=== PATIENT | female | born 1995 | race Caucasian/White ===

== ENCOUNTER 2018-03-24 14:49 | Inpatient (IN) | payer MEDICAID ==
[2018-03-24] MEDS ORDERED: ACETAMINOPHEN TAB 325 MG TAB PO PRN (15:37)
[2018-03-24] MEDS ORDERED: MAG HYDROX/AL HYDROX/SIMETH 30 ML CUP PO PRN (15:37)
[2018-03-24] MEDS ORDERED: MAGNESIUM HYDROXIDE 2,400 MG/10 ML CUP PO PRN (15:37)
[2018-03-24 19:52] VITALS: BMI 24.0
[2018-03-24] MEDS: QUEtiapine 25 MG TAB PO SCH (21:41)
[2018-03-25 07:10] VITALS: RESP 16
--- NOTE | 2018-03-25 10:16 | P.HPMEDMHU ---
History of Present Illness H&P Date: 03/25/18 Chief Complaint: Mental health unit H&P The patient is a 22-year-old female that is admitted to the mental health unit after being transferred here from [facility]. Apparently on Thursday night she presented there with suicidal ideation and drug overdose after apparently taking 15-20 tabs of Restoril 15 mg after which she notified friends that subsequently brought her to the ER there where she apparently received charcoal, she was subsequently discharged yesterday and transferred here for inpatient psychiatric treatment. The patient reports a history of bipolar disorder and a family history of schizoaffective disorder, the patient reports increasing feelings of hopelessness and feeling overwhelmed. Her latest trigger and psychosocial issues is a recent breakup with her significant other due to issues of infidelity. She currently has no place to go, this is her first suicide attempt. Although feeling depressed, she is remorseful about was never to attempt suicide again. Patient otherwise denies any medical issues, she denies any chest pain or shortness of breath. Review of Systems Pertinent positives and negatives as discussed in HPI, complete review of systems was performed and all other systems are negative Past Medical History Additional Past Medical History / Comment(s): in past, pt states that she had anemia, and potentially hypoglycemia. renaulds disease History of Any Multi-Drug Resistant Organisms: None Reported Past Surgical History: No Surgical Hx Reported Additional Psychological History / Comment(s): pt had 1 psych admit in the past Smoking Status: Never smoker Past Alcohol Use History: None Reported Past Drug Use History: Marijuana Additional Drug Use History / Comment(s): pt states 1 joint a week, pt carries a medicaL mj card Medications and Allergies Home Medications Medication Instructions Recorded Confirmed Type QUEtiapine [SEROquel] 25 mg PO HS 03/24/18 03/24/18 History Allergies Allergy/AdvReac Type Severity Reaction Status Date / Time No Known Allergies Allergy Verified 03/24/18 15:36 Physical Exam Vitals: Vital Signs Temp Pulse Resp BP 03/25/18 06:38 97.8 F 85 16 99/57 03/24/18 19:45 98.9 F 108 H 18 118/70 Intake and Output 03/24/18 03/25/18 03/25/18 22:59 06:59 14:59 Other: Weight 63.509 kg Constitutional: No acute distress, conversant, pleasant Eyes: Anicteric sclerae, moist conjunctiva, no lid-lag, PERRLA ENMT: NC/AT,Oropharynx clear, no erythema, exudates Neck:Supple, FROM, no masses, or JVD, No carotid bruits; No thyromegaly Lungs: Clear to auscultation, Clear to percussion, Normal respiratory effort, no accessory muscle use Cardiovascular: Heart regular in rate and rhythm, No murmurs, gallops, or rubs no peripheral edema Abdominal: Soft Nontender, nom distended, no guarding, no rebound or rigidity, Normoactive bowel sounds No hepatomegaly, No splenomegaly, No palpable mass No abdominal wall hernia noted Skin: Normal temperature, tone, texture, turgor, No induration No subcutaneous nodules, No rash, lesions, No ulcers Extremities:No digital cyanosis No clubbing, Pedal pulses intact and symmetrical Radial pulses intact and symmetrical Normal gait and station, No calf tenderness Psychiatric: Alert and oriented to person, place and time, flat affect, good insight Neuro: Muscles Strength 5/5 in all 4 extremities, Sensation to light touch grossly present throughout, Cranial nerves II-XII grossly intact. No focal sensory deficits Cranial Nerve Examination - Cranial Nerves Cranial Nerve II- Optic: Intact Cranial Nerve III- Oculomotor: Intact Cranial Nerve IV- Trochlear: Intact Cranial Nerve V- Trigeminal: Intact Cranial Nerve - Abducens: Intact Cranial Nerve VII- Facial: Intact Cranial Nerve VIII- Auditory: Intact Cranial Nerve IX- Glossopharyngeal: Intact Cranial Nerve X- Vagus: Intact Cranial Nerve XI- Accessory: Intact Cranial Nerve XII- Hypoglossal: Intact Results Labs: Abnormal Lab Results - Last 24 Hours (Table) 03/25/18 Range/Units 08:22 LDL Cholesterol, Calc 125 H (0-99) mg/dL Thrombosis Risk Factor Assmnt - Choose All That Apply Any of the Below Risk Factors Present?: No Other Risk Factors: No Other congenital or acquired thrombophilia - If yes, enter type in comment: No Thrombosis Risk Factor Assessment Level: Very Low Risk Assessment and Plan (1) Suicidal ideation Current Visit: Yes Status: Acute Code(s): R45.851 - SUICIDAL IDEATIONS SNOMED Code(s): 2404840 (2) Bipolar disorder Current Visit: Yes Status: Acute Code(s): F31.9 - BIPOLAR DISORDER, UNSPECIFIED SNOMED Code(s): 89165312 (3) Intentional overdose of drug in tablet form Current Visit: Yes Status: Acute Code(s): T50.902A - POISONING BY UNSP DRUG/ MEDS/BIOL SUBST, SELF-HARM, INIT SNOMED Code(s): 070865031 Plan: The patient is admitted to the mental health unit under the care of the psychiatric inpatient team, will defer to them regarding all ongoing medicinal psychotropic and behavioral therapy. She otherwise has no complaints has normal vital signs and is medically stable and her lab work is normal. We'll plan to sign off on this patient For further questions do not hesitate to contact the sound inpatient team. Thank you for the opportunity to be be involvement ongoing care of this patient
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
[2018-03-25] MEDS: CITALOPRAM HYDROBROMIDE 20 MG TAB PO SCH (11:24)
[2018-03-25 21:49] LABS: Hemoglobin A1C 4.8 % (4.0-6.0)
[2018-03-25] MEDS: QUEtiapine 25 MG TAB PO SCH (22:01)
[2018-03-26 06:38] VITALS: BP 96/54; PULSE 84; TEMP 97.9
[2018-03-26] MEDS: CITALOPRAM HYDROBROMIDE 20 MG TAB PO SCH (08:23)
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
== END 2018-03-26 17:13 | disposition home or self-care (01) | DRG 885 ==
LOC: 3MHU 17:54
PROVIDERS: ADMIT Psychiatry & Neurology Psychiatry; ATTEND Psychiatry & Neurology Psychiatry
DX: F33.2 Major depressive disorder, recurrent severe without psychotic features (principal); F41.0 Panic disorder [episodic paroxysmal anxiety]; F60.3 Borderline personality disorder; F90.9 Attention-deficit hyperactivity disorder, unspecified type; T42.4X2A Poisoning by benzodiazepines, intentional self-harm, initial encounter; Z79.899 Other long term (current) drug therapy; Z62.810 Personal history of physical and sexual abuse in childhood; Z81.8 Family history of other mental and behavioral disorders; Z81.1 Family history of alcohol abuse and dependence; Y92.9 Unspecified place or not applicable
CPT/HCPCS: 80061; 83036; 84443